=== PATIENT | female | born 1955 | race Caucasian/White ===

== ENCOUNTER 2017-03-27 18:11 | Emergency (ER) | payer BC ==
[2017-03-27] MEDS ORDERED: oxyCODONE/Acetamin 5/325 MG* TAB PO ONE ×2 (19:53→20:37)
--- NOTE | 2017-03-27 20:35 | ED ---
Skin Complaint - HPI Summary HPI Summary: 61F presents with cyst on left breast. She states she noticed a small bump on the area a couple days ago. She denies any fever. She denies any spreading redness. She states she has had a cyst in her breast before that had to be drained. She has history of MRSA. She states the swelling has increased over the past couple days. - History of Current Complaint Chief Complaint: EDRashSkinAbscess Time Seen by Provider: 03/27/17 19:37 Stated Complaint: LUMP ON CHEST Pain Intensity: 3 - Allergy/Home Medications Allergies/Adverse Reactions: Allergies Allergy/AdvReac Type Severity Reaction Status Date / Time No Known Allergies Allergy Verified 03/27/17 19:59 PMH/Surg Hx/FS Hx/Imm Hx Endocrine/Hematology History: Denies: Hx Anticoagulant Therapy Cardiovascular History: Reports: Hx Hypertension Infectious Disease History: No Infectious Disease History: Denies: Traveled Outside the [place] in Last 30 Days - Family History Known Family History: Positive: Hypertension - Social History Alcohol Use: Rare Substance Use Type: Reports: None Smoking Status (MU): Light Every Day Tobacco Smoker Review of Systems Negative: Fever Negative: Chest Pain Negative: Shortness Of Breath Positive: Other - abscess left breast All Other Systems Reviewed And Are Negative: Yes Physical Exam Triage Information Reviewed: Yes Vital Signs On Initial Exam: Initial Vitals Temp Pulse Resp BP Pulse Ox 97.4 F 78 20 116/69 99 03/27/17 18:15 03/27/17 18:15 03/27/17 18:15 03/27/17 18:15 03/27/17 18:15 Vital Signs Reviewed: Yes Appearance: Positive: Well-Appearing Skin: Positive: Warm, Dry, Other - 3cm by 3cm abscess at 9 position of left breast with erythema Head/Face: Positive: Normal Head/Face Inspection Eyes: Positive: Normal, EOMI, OSKAR, Conjunctiva Clear ENT: Positive: Normal ENT inspection, Pharynx normal, TMs normal Respiratory/Lung Sounds: Positive: Clear to Auscultation, Breath Sounds Present Cardiovascular: Positive: Normal, RRR Musculoskeletal: Positive: Normal Neurological: Positive: Normal Psychiatric: Positive: Normal - Roxanne Coma Scale Coma Scale Total: 15 Procedures - Incision and Drainage Site: left breast Anesthesia: Local Instrument(s): Scalpel Diagnostics - Vital Signs Vital Signs Temp Pulse Resp BP Pulse Ox 03/27/17 20:00 18 03/27/17 18:15 97.4 F 78 20 116/69 99 - Laboratory Lab Statement: Any lab studies that have been ordered have been reviewed, and results considered in the medical decision making process. Course/Dx - Course Course Of Treatment: 61F presents with cyst on left breast. She states she noticed a small bump on the area a couple days ago. She denies any fever. She denies any spreading redness. She states she has had a cyst in her breast before that had to be drained. She has history of MRSA. She states the swelling has increased over the past couple days. on left breast at 9 position small abscess present with minimial surrounding erythema. I&D abscess and got 5cc pus. unable to place packing in wound. placed on bactrim. patient understand and agrees with plan. - Differential Diagnoses - Skin Complaint Differential Diagnoses: Abscess, Cellulitis, Contact Dermatitis - Diagnoses Provider Diagnoses: Left breast abscess Discharge - Discharge Plan Condition: Good Disposition: HOME Prescriptions: Sulfamethox/Trimethoprim DS* [Bactrim DS 800/160 TAB*] 1 tab PO BID #19 tab Patient Education Materials: Abscess (ED) Referrals: Non Staff,Doctor [Primary Care Provider] - Additional Instructions: Take antibiotic twice a day for 10 days, first dose given in ED Apply warm compresses to area Take ibuprofen or Tylenol for pain every 6 hours follow up with primary within 5 days Return to ED if develop fever, area of redness spreads, or any new or worsening symptoms
[2017-03-27] MEDS ORDERED: Sulfamethox/Trimethoprim DS 800/160* TAB PO ONE (20:37)
[2017-03-27 20:59] VITALS: BP 130/70
== END 2017-03-27 20:57 | disposition home or self-care (01) ==
LOC: ED 18:11
DX: N61.1 Abscess of the breast and nipple (principal); Z86.14 Personal history of Methicillin resistant Staphylococcus aureus infection; I10 Essential (primary) hypertension; Z72.0 Tobacco use
CPT/HCPCS: 10060; 87070; 87205; 87640; 87641; 99282; A9270-GY